=== PATIENT | male | born 1980 | race Caucasian/White ===

== ENCOUNTER 2020-09-16 12:04 | Outpatient (CLI) | payer OTHER, SELFPAY ==
[2020-09-16 12:47] LABS: Basophils Percent Auto 0.3 % (0.2-1.2); Eosinophils Absolute Auto 0.2 K/mm3 (0-0.3); Eosinophils Percent Auto 2.6 % (0-4.4); Hematocrit 41.4 % (42.0-52.0); Hemoglobin 13.8 g/dL (14.0-18.0); Immature Granulocyte Absolute 0.02 K/mm3 (0.00-0.031); Immature Granulocyte Percent A 0.2 % (0-0.5); Lymphocytes Absolute Auto 2.13 K/mm3 (0.9-3.2); Lymphocytes Percent Auto 24.2 % (18.3-44.2); Mean Corpuscular HGB Conc 33.3 g/dl (32-36); Mean Corpuscular Hemoglobin 29.6 pg (26-34); Mean Corpuscular Volume 88.8 fl (80-100); Mean Platelet Volume 9.3 fl (7.4-10.4); Monocytes Absolute Auto 0.5 K/mm3 (0.1-0.6); Monocytes Percent Auto 5.5 % (2.6-8.5); Neutrophils Absolute Auto 5.9 K/mm3 (1.3-6.7); Neutrophils Percent Auto 67.2 % (45.5-73.1); Platelet Count Result 387 k/mm3 (150-375); Red Blood Count 4.66 M/mm3 (4.6-6.20); Red Cell Distribution Width 11.3 % (11.5-14.5); White Blood Count 8.8 K/mm3 (4.5-10.0)
[2020-09-16 12:57] LABS: Alanine Aminotransferase 21 U/L (4-50); Albumin Level 4.2 g/dL (3.5-5.1); Alkaline Phosphatase 73 U/L (38-126); Anion Gap 8 mmol/L (8-16); Aspartate Amino Transferase 25 U/L (17-59); Bilirubin,Total 0.3 mg/dL (0.2-1.3); Blood Urea Nitrogen 11 mg/dL (9-20); Calcium 9.3 mg/dL (8.4-10.2); Carbon Dioxide 33 mmol/L (22-30); Chloride 97 mmol/L (98-107); Estimated Glomerular Filt Rate > 60; Glucose 104 mg/dL (75-110); Potassium 4.1 mmol/L (3.4-5.0); Sodium 138 mmol/L (137-145)
[2020-09-16 13:03] LABS: Add Urine Microscopic? YES; Appearance Urine Clear (Clear); Bilirubin Urine Negative (Negative); Blood Urine Negative (Negative); Color Urine Straw (Yellow); Glucose Urine UA Negative (Negative); Ketones Urine Negative (Negative); Leukocyte Esterase Ur Negative LEU/UL (NEGATIVE); Mucus Urine Rare /lpf; Nitrate Urine Negative (Negative); Protein Urine Negative (Negative); Specific Grav Ur 1.008 (1.001-1.035); Urobilinogen Urine Negative mg/dL (<2.0); WBC Urine 0-3 /hpf (0-3)
[2020-09-16 13:29] LABS: Thyroid Stimulating Hormone 0.745 uIU/mL (0.465-4.680)
[2020-09-16 14:03] LABS: Folic Acid 14.2 ng/mL (2.76->20)
== END 2020-09-16 12:05 | disposition home or self-care (01) ==
PROVIDERS: PCP Family Medicine; Visit Provider Physician Assistant
DX: R53.83 Other fatigue (principal); R61 Generalized hyperhidrosis
CPT/HCPCS: 36415; 80053; 81001; 82607; 82746; 84443; 85025; 87086

== ENCOUNTER 2024-10-01 13:18 | Outpatient (CLI) | payer BC, SELFPAY ==
[2024-10-01 14:47] LABS: Influenza A QL RT-PCR Negative (Negative); Influenza B QL RT-PCR Negative (Negative); RSV RNA, RT-PCR Negative (Negative); SARS-CoV-2 RNA PCR Negative (Negative)
== END 2024-10-01 13:19 | disposition home or self-care (01) ==
PROVIDERS: PCP Family Medicine; Visit Provider Physician Assistant
DX: R50.9 Fever, unspecified (principal); R05.9 Cough, unspecified
CPT/HCPCS: 87637

== ENCOUNTER 2025-09-01 01:25 | Day surgery (SDC) | payer BC, SELFPAY ==
--- OUTSIDE RECORDS SUMMARY | 2025-06-24 11:30 | XMS_ITS ---
Author Organization [facility] [place] ([address]) Address [address] [place] [address] Care Team Providers Care Ux Developer Designer Name Role Phone Cristina Desouza Unavailable [phone] REASON FOR VISIT [facility] follow-up Laboratory Review Social History Sex Assigned At : Social History Observation Description Sex Assigned At Male Encounters Encounter Location Date Provider Diagnosis [facility] [address] [place] [address] 06/24/2025 Cristina Desouza Plan Of Treatment No Information Progress Notes * Tamera BALDWINOB:1980 (44 yo M)Acc No.[id number]:06/24/2025 Progress Notes Patient: Sam RICARDO Provider: JAYA Sullivan :1980 A ge:44 Y S ex:Male Date:06/24/2025 [facility] [address] [id number] Subjective: * Chief Complaints: * 1 . [facility] follow-up Laboratory Review. * Medical History: Objective: * Vitals: Assessment: Plan: * Treatment: * Billing Information: * Visit Code: * Procedure Codes: * Electronic signature of JAYA Childs on 09/01/2025 at 01:28 AM CORDWOOD CUTTER Sign off status: Pending * Provider: JAYA Sullivan Date: 0 06/24/2025 Generated for Giseli ng/Fabhavanag/eTransmitting on: 1 11/01/2024 01:28 AM CORDWOOD CUTTER
[2025-08-23 08:56] VITALS: BMI 24.4
--- OUTSIDE RECORDS SUMMARY | 2025-09-01 01:28 | XMS_ITS | Clinical Summary ---
Author Organization [facility] Address [address] [place] [address] Care Team Providers Care Concrete Stone Finisher Name Role Phone Hany Farr MD Primary Care Provider [phone] Source Comments [facility],non-owned Affiliates and Associated Physician Practices is amultiple site organization consisting of ambulatory clinics and hospital sitesin [place]. This disclosure is being madepursuant to the Care Everywhere program and may not contain all information available regarding this patient. Last updated 18.[facility] Allergies Active Allergy Reactions Criticality Noted Date Comments Penicillins Rash Medium 01/21/2017 Medications * Be aware that medications may not be up to date on this document. Alwaysverify current medications with the patient. No known medications Active Problems No known active problems Social History Tobacco Use Types Packs/Day Years Used Date Smoking Tobacco: Never Smokeless Tobacco: Never Sex and Gender Information Value Date Recorded Sex Assigned at Not on file Legal Sex Male 1:49 PM CDT Gender Identity Not on file Sexual Orientation Not on file Last Filed Vital Signs Vital Sign Reading Time Taken Comments Blood Pressure 120/78 01/23/2019 3:17 PM CDT Pulse 60 01/23/2019 3:17 PM CDT Temperature 36.6 C (97.9 F) 01/23/2019 3:17 PM CDT Respiratory Rate 16 01/23/2019 3:17 PM CDT Oxygen Saturation 97% 01/23/2019 3:17 PM CDT Inhaled Oxygen Concentration - - Weight 88.5 kg (195 lb) 01/23/2019 3:17 PM CDT Height 188 cm (6' 2) 01/23/2019 3:17 PM CDT Body Mass Index 25.04 01/23/2019 3:17 PM CDT Plan of Treatment Health Maintenance Due Date Last Done Comments LIPID TESTING 1980 HIV SCREENING 1997 HEPATITIS C SCREENING 11/18/2000 DTAP/TDAP/TD VACCINES (1 - Tdap) 2001 HEPATITIS B VACCINE (1 of 3 - 19+ 3-dose series) 2001 HPV VACCINE (1 - 3-dose SCDM series) 2009 DEPRESSION SCREENING 10/07/2024 COVID-19 VACCINE (1 - 2024-2 6 season) 2025 INFLUENZA VACCINE (#1) 2025 ZOSTER VACCINE (1 of 2) 2032 HIB VACCINE Aged Out No longer eligi ble based on patient's age to complete this topic MENINGOCOCCAL (Group B) VACC INE SHARED DECISION-MAKING Aged Out No longer eligibl e based on patient's age to complete this topic MENINGOCOCCAL GROUPS A/C/Y/W VACCINE Aged Out No longer eligible b ased on patient's age to complete this topic PNEUMOCOCCAL VACCINE Aged Out No long er eligible based on patient's age to complete this topic Insurance [facility] [place] [address] Care Teams Concrete Stone Finisher Relationship Specialty Start Date End Date Hany Farr MD [address] [facility] [place] [address] PCP - General Family Medicine 01/21/17
--- OUTSIDE RECORDS SUMMARY | 2025-09-01 01:28 | XMS_ITS | Patient Health Record ---
Author Organization [facility] [employer] [facility] ([address]) Address [address] [place] [address] Care Team Providers Care Warehouse Selector Name Role Phone Cristina Desouza Unavailable [phone] Allergies Allergen (clinical drug ingredient) Drug/Non Drug Allergy documented on EMR Reaction Allergy Type Onset Date Status Penicillin rash Drug Allergy Active Results Component Value Reference Range Notes -Immunoglobulins A/E/G/M, Se rum Reviewed date:06/15/2025 07:45:39 AM Interpretation:Normal Performing Lab:[facility] [address] [id number], Phone - [phone], Director - PhDRicten broeck hospitalsharii Notes/Report: Immunoglobulin G, Qn, Serum 1455 282-4775 mg/d L Immunoglobulin A, Qn, Serum 108 90-386 mg/dL Immunoglobulin M, Qn, Serum 156 20-172 mg/dL Immunoglobulin E, Total 314 6-495 IU/mL -CBC With Differential/Plate let Reviewed date:06/14/2025 03:05:45 PM Interpretation:Normal Performing Lab:[facility], [address] [place] [id number], Phone - [phone], Director - PhDRicchiuti Notes/Report: WBC 7.5 3.4-10.8 x10E3/uL RBC 5.68 4.14-5.80 x10E6/uL Hemoglobin 16.0 13.0-17.7 g/dL Hematocrit 48.5 37.5-51.0 % MCV 85 79-97 fL MCH 28.2 26.6-33.0 pg MCHC 33.0 31.5-35.7 g/dL RDW 11.7 11.6-15.4 % Platelets 278 150-450 x10E3/uL Neutrophils 61 Not Estab. % Lymphs 31 Not Estab. % Monocytes 6 Not Estab. % Eos 2 Not Estab. % Basos 0 Not Estab. % Neutrophils (Absolute) 4.6 1.4-7.0 x10E3/uL Lymphs (Absolute) 2.4 0.7-3.1 x10E3/uL Monocytes(Absolute) 0.5 0.1-0.9 x10E3/uL Eos (Absolute) 0.1 0.0-0.4 x10E3/uL Baso (Absolute) 0.0 0.0-0.2 x10E3/uL Immature Granulocytes 0 Not Estab. % Immature Grans (Abs) 0.0 0.0-0.1 x10E3/uL -Vitamin D, 25-Hydroxy Reviewed date:06/11/2025 01:13:45 PM Interpretation:Normal Performing Lab:[facility] [address] [id number], Phone - [phone], Director - Bhavik Notes/Report: Vitamin D, 25-Hydroxy 62.2 30.0-100.0 ng/mL Vitamin D deficiency has been defined by the [place] of [employer] and an Endocrine Society practice guideline as a level of serum 25-OH vitamin D less than 20 ng/mL (1,2). The Endocrine Society went on to further define vitamin D insufficiency as a level between 21 and 29 ng/mL (2). 1. IOM ([place] of [employer]). 2010. Dietary reference intakes for calcium and D. [place]: The National Academies Press. 2. Jaciel MF, Lisette ALMODOVAR, Roberto BUCIO, et al. Evaluation, treatment, and prevention of vitamin D deficiency: an Endocrine Society clinical practice guideline. JCEM. 2010; 96(7):1911-30. -Haemophilus influenzae B Ig G Reviewed date:06/15/2025 07:45:19 AM Interpretation:Normal Performing Lab:[facility] [address] [id number], Phone - [phone], Director - Akira Notes/Report: Haemophilus influenzae B IgG 2.41 NOTE: An anti-Hib level of 0.15 ug/mL is generally accepted as the minimum level for protection. Optimal protection post-vaccination requires a level greater than 1.00 ug/mL. -Tetanus/Diphtheria Ab Reviewed date:06/16/2025 07:48:35 AM Interpretation:Normal Performing Lab:[facility], [address] [id number], Phone - [phone], Director - PhDBCNeil Notes/Report: Tetanus Antitoxoid IgG Ab 1.27 <0.10 IU/mL Interpretation: Non-Protective <0.10 Protective >=0.10 Results for this test are for research purposes only by the assay's form grader. The performance characteristics of this product have not been established. Results should not be used as a diagnostic procedure without confirmation of the diagnosis by another medically established diagnostic product or procedure. Diphtheria Antitoxoid Ab 0.40 <0.10 IU/mL Interpretation: Non-Protective <0.10 Protective >=0.10 . For research use only. -Respiratory Allergens w/Tot al IgE Area 8 Reviewed date:06/15/2025 11:48:37 AM Interpretation:Abnormal Performing Lab:[facility], [address], [place] [id number], Phone - [phone], Director - PhDRicchisharii Notes/Report: Class Description Levels of Specific IgE Class Description of Class ----- < 0.10 0 Negative 0.10 - 0.31 0/I Equivocal/Low 0.32 - 0.55 I Low 0.56 - 1.40 II Moderate 1.41 - 3.90 III High 3.91 - 19.00 IV Very High 19.01 - 100.00 V Very High >100.00 Very High T145-HsB D pteronyssinus 1.63 Class III kU/L Y888-VqN D farinae 1.56 Class III kU/L Z981-SlS Cat Dander <0.10 Class 0 kU/L C506-UuL Dog Dander <0.10 Class 0 kU/L A255-HiL Mouse Urine <0.10 Class 0 kU/L X294-BgV Bermuda Grass <0.10 Class 0 kU/L M887-QxA Elan Grass 0.24 Class 0/I kU/L Y396-ZwK Cockroach, Amharic 0.55 Class I kU/L V145-GsX Penicillium chrysogen <0.10 Class 0 kU /L F114-IcH Cladosporium herbarum <0.10 Class 0 kU /L I270-VmH Aspergillus fumigatus <0.10 Class 0 kU /L W728-QhH Alternaria alternata <0.10 Class 0 kU/ L V858-EiK Maple/Chaffee 0.19 Class 0/I kU/L X526-EmQ [place], Mountain 0.22 Class 0/I kU/L N964-NxC Isabella, White 0.12 Class 0/I kU/L M195-UsY Elm, Nigerian 0.56 Class II kU/L S528-QdL [place] 0.32 Class I kU/L W981-HvM Maple Edie [place] 0.32 Class I kU/L A913-JkK Cuming 0.25 Class 0/I kU/L O192-OuL Lexa, White 0.79 Class II kU/L B852-NyP Pecan, Grainger 0.19 Class 0/I kU/L X106-QoI White [place] <0.10 Class 0 kU/L G526-UjF Ragweed, Short 0.25 Class 0/I kU/L Y371-LgF Thistle, Bangladeshi 0.13 Class 0/I kU/L B680-GhP Pigweed, Common 0.12 Class 0/I kU/L I056-CvW Rough Marshelder 0.21 Class 0/I kU/L -Pneumococcal Ab (23 Serotyp e) Reviewed date:06/16/2025 07:49:47 AM Interpretation:Abnormal Performing Lab:[facility], [address], [facility], [place], [place] [id number], Phone - [phone], Director - PhDBCNeil Notes/Report: Pneumo Ab Type 1* <0.1 >1.3 ug/mL Pneumo Ab Type 3* 0.1 >1.3 ug/mL Pneumo Ab Type 4* 0.6 >1.3 ug/mL Pneumo Ab Type 8* 1.4 >1.3 ug/mL Pneumo Ab Type 9 (9N)* 0.7 >1.3 ug/mL Pneumo Ab Type 12 (12F)* 0.3 >1.3 ug/mL Pneumo Ab Type 14* 1.3 >1.3 ug/mL Pneumo Ab Type 17 (17F)* 1.5 >1.3 ug/mL Pneumo Ab Type 19 (19F)* 1.1 >1.3 ug/mL Pneumo Ab Type 2* 1.2 >1.3 ug/mL Pneumo Ab Type 20* 1.1 >1.3 ug/mL Pneumo Ab Type 22 (22F)* 2.3 >1.3 ug/mL Pneumo Ab Type 23 (23F)* 0.1 >1.3 ug/mL Pneumo Ab Type 26 (6B)* 0.1 >1.3 ug/mL Pneumo Ab Type 34 (10A)* 2.1 >1.3 ug/mL Pneumo Ab Type 43 (11A)* 0.5 >1.3 ug/mL Pneumo Ab Type 5* 4.9 >1.3 ug/mL Pneumo Ab Type 51 (7F)* 0.6 >1.3 ug/mL Pneumo Ab Type 54 (15B)* 0.3 >1.3 ug/mL Pneumo Ab Type 56 (18C)* 0.1 >1.3 ug/mL Pneumo Ab Type 57 (19A)* 1.1 >1.3 ug/mL Pneumo Ab Type 68 (9V)* 0.3 >1.3 ug/mL Pneumo Ab Type 70 (33F)* 0.9 >1.3 ug/mL *This test was developed and its performance characteristics determined by [facility]. It has not been cleared or approved by the U.S. Food and Drug Administration. FLAG Interpretation: A = Abnormal, H = High, L = Low Reason For Referral Reason Dysphagia, concern f or EoE Diagnosis 1 Dysphagia, unspecifi ed (R13.10) Referral Organization [facility] Referring Provider First Name Cristina Referring Provider Last Name Deo Referring Provider Speciality Allergy/Im munology Referred Provider Dony Dailey Referred Provider Specialty Gastroentero logy Referral Priority Routine Medications Medication SIG (Take, Route, Fr equency, Duration) Notes Start Date End Date Status Omeprazole 40 MG 1 capsule 1/2 to 1 h our before morning meal Orally Once a day; Duration: 30 days Active Eohilia 2 MG/10ML 10 mL Orally Twice a day; Duration: 30 days Active ZyrTEC Allergy 10 MG 1 tablet Orally Once a day Active Nasal Washes N/A as directed intranasally 07/01/20 Active Immunizations Vaccine Route Administration Date Status Comme nts Pneumovax 23 IM Intramuscular 07/01/2025 Administered Social History Tobacco Use: Social History Observation Description Date Details (start date - stop date) Never Smoker NA - NA Sex Assigned At : Social History Observation Description Sex Assigned At Male Tobacco Control (Standard) Question Answer Notes Tobacco use: Nonsmoker AUDIT-C (Standard) Question Answer Notes Did you have a drink contain ing alcohol in the past year? Yes How often did you have a dri nk containing alcohol in the past year? Monthly or less (1 point) How many drinks did you have on a typical day when you were drinking in the past year? 1 or 2 drinks (0 point) How often did you have six o r more drinks on one occasion in the past year? Never (0 point) Points 1 Interpretation Negative Problems Problem Type SNOMED Code ICD Code Onset Dates Problem Status W/U Status Risk Notes Problem Chronic allergic conjunctivitis (23528566) Other chronic allergic conjunctivitis (H10.45) Active confirmed Problem Allergic rhinitis caused by pollen (disorder) (46043175) Allergic rhinitis due to pollen (J30.1) Active confirmed Problem Allergic rhinitis (65487274) Other allergic rhinitis (J30.89) Active confirmed Problem Chronic rhinitis (84750931) Chronic rhinitis (J31.0) Active confirmed Problem Chronic sinusitis (99359927) Chronic sinusitis, unspecified (J32.9) Active confirmed Problem Uncomplicated mild persistent asthma (712172411) Mild persistent asthma, uncomplicated (J45.30) Active confirmed Problem Uncomplicated moderate persistent asthma (489643032) Moderate persistent asthma, uncomplicated (J45.40) Active confirmed Problem Uncomplicated severe persistent asthma (303867536) Severe persistent asthma, uncomplicated (J45.50) Active confirmed Problem Allergic rhinitis caused by animal hair and dander (318505687736614) Allergic rhinitis due to animal (cat) (dog) hair and dander (J30.81) Active confirmed Problem Dysphagia (41987581) Dysphagia, unspecified (R13.10) Active confirmed Problem Vitamin D deficiency (05969709) Vitamin D deficiency, unspecified (E55.9) Active confirmed Vital Signs Blood pressure diastolic 69 mm Hg 07/01/2025 Oximetry 96 % 07/01/2025 Height 74 in 07/01/2025 Blood pressure systolic 129 mm Hg 07/01/2025 Weight 190.2 lbs 07/01/2025 BMI 24.42 kg/m2 07/01/2025 Encounters Encounter Location Date Provider Diagnosis [facility] [address] [employer] [address] [place] [address] 07/01/2025 Cristina Desouza Allergic rhinitis du e to pollen J30.1 ; Dysphagia, unspecified R13.10 ; Other allergic rhinitis J30.89 ; Other chronic allergic conjunctivitis H10.45 ; Chronic sinusitis, unspecified J32.9 ; Rash and other nonspecific skin eruption R21 ; Adverse effect of penicillins, initial encounter T36.0X5A and Elevated blood-pressure reading, without diagnosis of hypertension R03.0 [facility] [address] [employer] [address] [address] 05/27/2025 Cristina Desouza Allergic rhinitis du e to pollen J30.1 ; Dysphagia, unspecified R13.10 ; Other allergic rhinitis J30.89 ; Other chronic allergic conjunctivitis H10.45 ; Chronic sinusitis, unspecified J32.9 ; Vitamin D deficiency, unspecified E55.9 ; Rash and other nonspecific skin eruption R21 ; Adverse effect of penicillins, initial encounter T36.0X5A and Elevated blood-pressure reading, without diagnosis of hypertension R03.[address] [place] [address] 06/28/2025 Cristina Desouza Dysphagia, unspecifi ed R13.10 [facility] [address] [place] [address] 06/16/2025 Cristina Desouza [facility] [address] [place] [address] 08/05/2025 Cristina Desouza [facility] [address] [place] [address] 06/29/2025 Cristina Desouza Dysphagia, unspecifi ed R13.10 Assessments Encounter Date Diagnosis (ICD Code) Assessment Notes Treatment Notes Treatment Clinical Notes Section Notes 05/27/2025 Allergic rhinitis due to pollen (ICD-10 - J30.1) Given the history and symptoms, skin testing was performed to common aeroallergens to determine atopic status. Sam clearly suffers from atopic disease based upon our skin testing and clinical history. Accordingly, we have introduced a new, aggressive medication regimen, discussed nasal washes and allergy-specific avoidance measures. We also discussed adjunctive therapies including subcutaneous, specific allergen immunotherapy as relates to the treatment and prevention of atopic disease. They are currently considering the risks, benefits and alternatives to this care. Risks: bleeding, infection, allergic reaction, anaphylaxis; Benefits: reduced need for medications, improved symptoms, disease modification. Alternatives: watch/wait, change medication regimen, improve allergy avoidance measures. - 1 histamin blunted on skin testing. ImmunoCaps to be ordered for further assessment of atopic disease. - Continue Zyrtec daily. - Highly consider SCIT - to discuss further at follow-up. - Follow-up in 1 month for interval evaluation and management 05/27/2025 Dysphagia, unspecified (ICD-10 - R13.10) Sam describes a long-standing history-spanning 10 to 20 years-of difficulty swallowing liquids and certain foods. Symptoms are occurring on a weekly basis. Required dilation in 2013 and 2017, though he noted only short-term relief. He also attempted PPI in past, though felt minimal improvement. He has not attempted swallowed steroids. Triggers are steak, pork and hibachi rice. He compensates by stopping eating, drinking water, or vomiting to relieve symptoms. He has required the Heimlich 3 times in the past. His last GI evaluaion was in 2018 when he required dilation. He denies biopsy at that time. Minimal caffeine intake. Denies reflux symptoms. - Symptoms are highly concerning for EoE - recommend establishing with GI for EGD with biopsy. He verbalized understanding. Will send referral to [facility]. - Will trial PPI 40mg daily and Eohilia BID. Dosing instructions discussed with patient. Samples of Eohilia given. - Consider elimination diet. He reports minimal dairy and egg intake. He does consume wheat regularly. - Encouraged to avoid late-night eating, reduce caffeine intake. - CBC to be obtained at this time. - Follow-up in 1 month for E&M, laboratory review 06/28/2025 Dysphagia, unspecified (ICD-10 - R13.10) 06/29/2025 Dysphagia, unspecified (ICD-10 - R13.10) 07/01/2025 Allergic rhinitis due to pollen (ICD-10 - J30.1) Sam clearly suffers from atopic disease based upon our skin testing and clinical history. Accordingly, we have introduced a new, aggressive medication regimen, discussed nasal washes and allergy-specific avoidance measures. We also discussed adjunctive therapies including subcutaneous, specific allergen immunotherapy as relates to the treatment and prevention of atopic disease. He is currently considering the risks, benefits and alternatives to this care. Risks: bleeding, infection, allergic reaction, anaphylaxis; Benefits: reduced need for medications, improved symptoms, disease modification. Alternatives: watch/wait, change medication regimen, improve allergy avoidance measures. - 1 histamine blunted on skin testing. ImmunoCaps obtained showing IgE elevations to dust mites, trees, grass, weeds, cockroach. Total IgE 314. - Recommend selective skin testing to molds and perennials prior to SCIT. - Continue Zyrtec daily. - Highly consider SCIT - to discuss further at follow-up. 07/01/2025 Dysphagia, unspecified (ICD-10 - R13.10) Sam describes a long-standing history-spanning 10 to 20 years-of difficulty swallowing liquids and certain foods. Symptoms are occurring on a weekly basis. Required dilation in 2013 and 2018, though he noted only short-term relief. He also attempted PPI in past, though felt minimal improvement. He has not attempted swallowed steroids. Triggers are steak, pork and hibachi rice. He compensates by stopping eating, drinking water, or vomiting to relieve symptoms. He has required the Heimlich 3 times in the past. His last GI evaluaion was in 2018 when he required dilation. He denies biopsy at that time. Minimal caffeine intake. Denies reflux symptoms. Minimal improvement with PPI and Eohilia. - Symptoms are highly concerning for EoE - recommend establishing with GI for EGD with biopsy. He verbalized understanding. COnfirmed referrla. He is set to make appointment today. - Will hold PPI and Eohilia given upcoming GI evaluation. - Consider elimination diet. He reports minimal dairy and egg intake. He does consume wheat regularly. - Encouraged to avoid late-night eating, reduce caffeine intake. - CBC obtained - abs eos 100. - Follow-up after GI evaluation 07/01/2025 Other allergic rhinitis (ICD-10 - J30.89) Follow allergen avoidance, meds and consider SCIT as an adjunctive treatment to current regimen 05/27/2025 Other allergic rhinitis (ICD-10 - J30.89) Follow allergen avoidance, meds and consider SCIT as an adjunctive treatment to current regimen 07/01/2025 Other chronic allergic conjunctivitis (ICD-10 - H10.45) Given ocular signs and symptoms I encouraged allergy avoidance measures and meds as above. If symptoms persist, consider adding additional medications including intraocular antihistamine/mast cell stabilizer, PRN and consider SCIT as an adjunctive measure 05/27/2025 Other chronic allergic conjunctivitis (ICD-10 - H10.45) Given ocular signs and symptoms I encouraged allergy avoidance measures and meds as above. If symptoms persist, consider adding additional medications including intraocular antihistamine/mast cell stabilizer, PRN and consider SCIT as an adjunctive measure 05/27/2025 Chronic sinusitis, unspecified (ICD-10 - J32.9) Patient reports 2-3 sinus infections per year, requiring antibiotics and PO steroids. Given recurrent infections, he meets the JMF criteria for modified PIDD workup. - Plan on obtaining modified PIDD work-up and plan on booster/Vitamin D supplementation based on results. 07/01/2025 Chronic sinusitis, unspecified (ICD-10 - J32.9) Patient reports 2-3 sinus infections per year, requiring antibiotics and PO steroids. Given recurrent infections, he met the JMF criteria for modified PIDD workup, revealing inadequate s. pneumo protection (03/29). Vitamin D 62.2 - Received [id number]. Tolerated without issue. - Will obtained repeat titers in 4-6 weeks. Labs ordered and printed order given to patient. 07/01/2025 Rash and other nonspecific skin eruption (ICD-10 - R21) Sam described seasonal hives that manifest as skin breakouts on his back triggered by dry weather or outdoor activity. These episodes occur approximately 4-5 days per year, resolve quickly with lotion or by going indoors, and last less than 20 minutes. He denied any associated lip or eye swelling and feels that Zyrtec helps reduce the frequency and severity of his hives. No pictures available. - Not interested in further workup at this time. - Encouraged to take pictures next time symptoms occur. 05/27/2025 Vitamin D deficiency, unspecified (ICD-10 - E55.9) R/O with Modified PIDD workup as stated above. 07/01/2025 Adverse effect of penicillins, initial encounter (ICD-10 - T36.0X5A) Reports rash after PCN ingestion on [employer] paperwork - to discuss further at follow-up. 05/27/2025 Rash and other nonspecific skin eruption (ICD-10 - R21) Sam described seasonal hives that manifest as skin breakouts on his back triggered by dry weather or outdoor activity. These episodes occur approximately 4-5 days per year, resolve quickly with lotion or by going indoors, and last less than 20 minutes. He denied any associated lip or eye swelling and feels that Zyrtec helps reduce the frequency and severity of his hives. No pictures available. - Not interested in further workup at this time. - Encouraged to take pictures next time symptoms occur. 05/27/2025 Adverse effect of penicillins, initial encounter (ICD-10 - T36.0X5A) Reports rash after PCN ingestion on [employer] paperwork - to discuss further at follow-up. 07/01/2025 Elevated blood-pressure reading, without diagnosis of hypertension (ICD-10 - R03.0) BP elevated today without symptoms of urgency or emergency. Continue serial checks and follow-up with PCP 05/27/2025 Elevated blood-pressure reading, without diagnosis of hypertension (ICD-10 - R03.0) BP elevated today without symptoms of urgency or emergency. Continue serial checks and follow-up with PCP 05/27/2025 Other 07/01/2025 Other Plan Of Treatment Pending Test Test Name Order Date -Pneumococcal Ab (23 Serotype) 5 Insurance Providers Payer Name Payer Address Payer Phone Subscriber Number Group Number Insured Name Patient Relationship to Insured Coverage Start Date Coverage End Date [facility] [address] [place] [address] [id number] Denny Sam Self - patient is the insured Medical (General) History Medical History History ICD Code Chronic sinusitis, unspecified J32.9 Surgical History Surgery Date(Month/Year) rotator cuff tear repair 2019 Tonsillectomy 1995 Endoscopy 2017 colonoscopy 2017 Hospitalization History Reason Date(Month/Year) See Above
[2025-09-01 10:23] VITALS: BP 113/69; PULSE 70; RESP 16; TEMP 36.7; O2SAT 99
[2025-09-01] MEDS: LACTATED RINGERS 1,000 ML 150 ML IV CONT (10:38)
--- NOTE | 2025-09-01 10:44 | P.PNAN_ITS ---
Anes - Initial Pre Proc Eval Procedure: Operation Date: 09/01/25 14:45 Proposed Procedures p Esophagogastroduodenoscopy - Justin Parham MD Date/Time: 09/01/25 10:44 Surgeon: Justin Parham MD Pre Op Diagnosis: Esophageal obstruction Patient Data Age: 44 Gender: M Height: 1.88 m Weight: 87.6 kg Last Vital Signs Temp 36.7 C 09/01/25 10:23 Pulse 70 09/01/25 10:23 Resp 16 09/01/25 10:23 BP 113/69 09/01/25 10:23 Pulse Ox 99 09/01/25 10:23 O2 Del Method Room Air 09/01/25 10:23 Allergies Allergy/AdvReac Type Severity Reaction Status Date / Time Penicillins Allergy Unknown unk Verified 09/01/25 10:14 Home Medications ?Medication ?Instructions ?Recorded ?Confirmed ?Type cetirizine 10 mg capsule (Zyrtec) 10 mg PO DAILY PRN a llergy symptoms 08/05/25 09/01/25 History omeprazole 40 mg capsule,delayed 40 mg PO DAILY #30 ca ps 08/05/25 09/01/25 Rx release Patient hx anesthesia problems: none Family hx anesthesia problems: none Results Review: All pre-operative results and documents have been reviewed as part of the pre- operative evaluation. [facility] Past Medical History Medical History Stricture of esophagus Social History Social History Social History: Caffeine-daily Smoking status: Never smoker Alcohol intake: current Alcohol use details: Socially Substance use type: does not use Lack of Transportation: No Lack of Food: Never True Current Housing: I Have Housing Concerned About Future Housing: No Difficulty Paying for Meds: No Currently Unemployed: No Education: Bachelor's Degree Difficulty w/ Childcare or Family Care: No Living arrangements: with family Additional living arrangements comments: with sp Occupation/Education: occupation Gender identity (if verbalized by the patient): Male Anes - Eval Final PreProcedure Day of Procedure 09/01/25 10:44 Patient weight: normal Heart: regular rate and rhythm Lungs: clear to auscultation Airway: Mallampati scale class II Neurological: alert and oriented Last oral intake: >/= 8 hours ASA classification: II Emergent: no Anesthetic plan: proceed Anesthesia type and monitoring: general GIVS and standard monitoring Results Review: All pre-operative results and documents have been reviewed as part of the pre- operative evaluation. Informed Consent: The patient's anesthetic plan and its attendant risks and benefits were discussed with the patient/family/POA. Questions were solicited and answers provided to the satisfaction of the patient/family/POA.
--- NOTE | 2025-09-01 10:49 | WPDHPUPDATE1 ---
History and Physical Update Update Date/Time: 09/01/25 10:49 History and Physical has been reviewed, including an updated exam of the patient. There are NO changes in the patient's condition. Risks, benefits, and alternatives have been discussed and questions answered. Patient agrees to proceed with procedure.
--- NOTE | 2025-09-01 10:57 | S_PTH ---
PATIENT: Sam Baldwin LOC: [facility]#:[id number] AGE/SX: 44/M ROOM: RE09/01/[address]: Justin Parham MD : 1980 BED: DIS: 09/01/2025 SPEC #: [id number] RECD: 09/01/25 12:55 STATUS: PHILLIP REPeterson #: [id number] JOSE F: 09/01/25 10:[address]: Justin Parham DEPT: [facility] Surgical RECD BY: Eduardo Churchill ENTERED: 09/01/25 12:56 SP TYPE: Surgical OTHR DR: Hany Farr MD Tissues: A - Gastric Biopsy B - Esophageal Biopsy C - Esophageal Biopsy Procedures: Hematoxylin and Eosin Stain Gross and Microscopic Level 4
[2025-09-01 11:01] VITALS: BP 99/60; PULSE 70; RESP 19; TEMP 36.7; O2SAT 99
[2025-09-01 11:11] VITALS: BP 117/71; PULSE 60; RESP 23; O2SAT 100
[2025-09-01 11:21] VITALS: BP 115/65; PULSE 60; RESP 22; O2SAT 100
== END 2025-09-01 11:32 | disposition home or self-care (01) ==
PROVIDERS: PCP Family Medicine; Referring Provider Nurse Practitioner Family; Visit Provider Internal Medicine Gastroenterology
PROC: 0DJ08ZZ Inspection of Upper Intestinal Tract, Via Natural or Artificial Opening Endoscopic (ICD-10-PCS; CPT 43249; principal; 2025-09-01 14:45)
DX: K22.2 Esophageal obstruction (principal); K21.00 Gastro-esophageal reflux disease with esophagitis, without bleeding
CPT/HCPCS: 43249; 43239; 88305; C1726; J2704; J7120